=== PATIENT | male | born 1935 | race Two or more races ===

== ENCOUNTER 2019-01-23 16:53 | Outpatient (CLI) | payer OTHER | END 2019-01-23 17:02 | disposition home or self-care (01) | LOC: LAB 16:53 | DX: N30.00 Acute cystitis without hematuria (principal) ==

== ENCOUNTER → 2019-01-24 07:20 | Outpatient (CLI) | payer OTHER ==
[~2019-01-24 07:20] MED LIST: ADALAT CC30 MG PO; FINASTERIDE5 MG PO; LEVAQUIN500 MG PO; TAMS0.4C PO
== END | disposition home or self-care (01) ==
LOC: LAB 07:20
DX: C61 Malignant neoplasm of prostate (principal); D68.8 Other specified coagulation defects

== ENCOUNTER 2019-01-27 15:00 | Inpatient (IN) | payer OTHER ==
[~2019-01-27] VITALS: Ht 170.2 cm; Wt 78.0 kg
[2019-01-28] MEDS ORDERED: TAMS0.4C PO (10:18)
[2019-01-28] MEDS ORDERED: FINASTERIDE5 MG PO (10:19)
[2019-01-28] MEDS ORDERED: LEVAQUIN500 MG PO (10:19)
[2019-01-28] MEDS ORDERED: ADALAT CC30 MG PO (10:20)
== END 2019-01-31 09:23 | disposition home or self-care (01) | DRG 714 ==
LOC: O/R 01-29 07:57 → SURG 01-29 09:00 → SURH 01-30 19:38
PROVIDERS: ADMIT Urology
PROC: 0VT08ZZ Resection of Prostate, Via Natural or Artificial Opening Endoscopic (ICD-10-PCS; principal; 2019-01-29 12:15)
DX: N40.1 Benign prostatic hyperplasia with lower urinary tract symptoms (principal); R33.8 Other retention of urine; I10 Essential (primary) hypertension

== ENCOUNTER 2019-02-13 08:43 | Outpatient (CLI) | payer OTHER | END 2019-02-13 08:52 | disposition home or self-care (01) | LOC: LAB 08:43 | DX: N30.00 Acute cystitis without hematuria (principal); B99.8 Other infectious disease ==